=== PATIENT | female | born 1930 | race Caucasian/White ===

== ENCOUNTER 2020-11-16 12:30 | Observation (INO) | payer MEDICARE ==
[2020-11-15 12:46] LABS: BASOPHILS % (AUTO) 0.3 % (0-1); EOSINOPHILS # (AUTO) 0.3 X10'3 (0-0.9); EOSINOPHILS % (AUTO) 3.9 % (0-6); HEMATOCRIT 39.6 % (35.0-45.0); HEMOGLOBIN 13.1 g/dl (12.0-16.0); LYMPHOCYTES # (AUTO) 1.7 X10'3 (1.1-4.8); LYMPHOCYTES % (AUTO) 24.5 % (21-51); MEAN CORPUSCULAR HEMOGLOBIN 30.9 PG (27.0-31.0); MEAN CORPUSCULAR HGB CONC 33.1 g/dL (33.0-36.5); MEAN CORPUSCULAR VOLUME 93.4 FL (78-98); MEAN PLATELET VOLUME 8.2 FL (7.4-10.4); MONOCYTES # (AUTO) 0.5 X10'3 (0-0.9); MONOCYTES % (AUTO) 7.5 % (2-12); NEUTROPHILS # (AUTO) 4.5 X10'3 (1.8-7.7); NEUTROPHILS % (AUTO) 63.8 % (42-75); PLATELET COUNT 171 X10'3 (140-440); RED BLOOD COUNT 4.24 X10'6 (4.20-5.60); RED CELL DISTRIBUTION WIDTH 14.1 % (11.5-14.5); WHITE BLOOD COUNT 7.1 X10'3 (4.5-11.0)
[2020-11-15 12:51] LABS: ALBUMIN 4.1 G/DL (3.4-5.0); ANION GAP 11 (8-16); BLOOD UREA NITROGEN 39 MG/DL (7-18); BUN/CREATININE RATIO 42.4 (6.6-38.0); CHLORIDE 106 MMOL/L (99-107); CREATININE 0.92 MG/DL (0.40-0.90); GLUCOSE 107 MG/DL (70-104); POTASSIUM 4.9 MMOL/L (3.5-5.1); SODIUM 144 MMOL/L (135-145); eGFR 57 ML/MIN
[2020-11-15 12:54] LABS: PARTIAL THROMBOPLASTIN TIME 25 SECONDS (22-32)
[~2020-11-16] VITALS: Ht 157.5 cm; Wt 91.3 kg
[2020-11-16] MEDS ORDERED: LORazepam 0.5 MG tablet PO PRN (12:55)
[2020-11-16] MEDS ORDERED: LIDOcaine/PRILOcaine 5gm cream TP ONE (12:55)
[2020-11-16] MEDS ORDERED: diphenhydrAMINE 25mg capsule PO PRN (12:55)
[2020-11-16] MEDS ORDERED: FENO160T PO (13:08)
[2020-11-16] MEDS ORDERED: ISOS30TA84 PO (13:08)
[2020-11-16] MEDS ORDERED: FLUT16SP26 (13:08)
[2020-11-16] MEDS ORDERED: LOSA100T57 PO (13:08)
[2020-11-16] MEDS ORDERED: OMEP-50 PO (13:08)
[2020-11-16] MEDS ORDERED: SERT-434 PO (13:08)
[2020-11-16] MEDS ORDERED: LEVO175T7 PO (13:08)
[2020-11-16] MEDS ORDERED: QUET25TA34 PO (13:08)
[2020-11-16] MEDS ORDERED: METO-395 PO (13:08)
[2020-11-16] MEDS ORDERED: CELE-85 PO (13:08)
[2020-11-16] MEDS ORDERED: SIMV80TA89 PO (13:08)
[2020-11-16] MEDS ORDERED: ASPI-611 PO (13:11)
[2020-11-16] MEDS ORDERED: ACET-890 PO (13:11)
[2020-11-16] MEDS: normal saline 1,000 ML IV SCH ×2 (13:45→22:26)
[2020-11-16 15:08] VITALS: BP 137/67
--- NOTE | 2020-11-16 15:17 | NUR ---
1330 vitals Addendum: 11/16/20 at 1519 by Yarelis CARPENTER Amended: Links added.
[2020-11-16] MEDS ORDERED: verapamil 2.5 mg/ml inj IV ONE (16:49)
[2020-11-16] MEDS ORDERED: fentaNYL/PF 50MCG/1 ML 2ML syringe ONE (16:49)
[2020-11-16] MEDS ORDERED: midazolam 1 mg/ML 2ml injection ONE (16:49)
[2020-11-16] MEDS ORDERED: nitroGLYCERIN-Tridil 50MG/D5W 250 ML IV ONE (16:49)
[2020-11-16] MEDS ORDERED: LIDOcaine 1% (10mg/ml)w/preservative injection 20ml MDV ONE (16:50)
[2020-11-16] MEDS ORDERED: heparin 1,000unit/ml 10ml vial 10 ML ONE (16:50)
[2020-11-16] MEDS ORDERED: iohexol 350 MG/ML 50ML vial IV ONE (16:50)
[2020-11-16] MEDS ORDERED: iohexol 350MG/ML 100ml bottle IV ONE ×2 (16:50→18:02)
[2020-11-16] MEDS ORDERED: heparin 25,000 UNIT/250ml bag 250 ML IV ONE (18:00)
[2020-11-16] MEDS ORDERED: clopidogrel 300mg tablet ONE (18:34)
[2020-11-16 19:02] VITALS: BP 170/71
[2020-11-16] MEDS ORDERED: proCHLORperazine 10 MG/2 ml inj IV PRN (19:30)
[2020-11-16] MEDS ORDERED: acetaminophen 325mg tablet PO PRN ×2 (19:30)
[2020-11-16] MEDS ORDERED: cyclobenzaprine 10mg tablet PO PRN (19:30)
[2020-11-16] MEDS ORDERED: magnesium hydroxide 30ml (MOM) UD suspension PO PRN (19:30)
[2020-11-16] MEDS ORDERED: OXAZEpam 15mg capsule PO PRN (19:30)
[2020-11-16] MEDS ORDERED: HYDROcodone/acetaminophen 10/325mg tab PO PRN ×2 (19:30)
[2020-11-16] MEDS: docusate sod 100mg capsule PO SCH (20:07)
[2020-11-16] MEDS ORDERED: heparin 25,000 UNIT/250ml bag 250 ML IV SCH (20:30)
[2020-11-16] MEDS ORDERED: ACETAMINOPHEN 650 MG PO PRN (20:45)
[2020-11-16] MEDS ORDERED: isosorbide mononitrate 30mg tab.SR.24H PO SCH (21:00)
[2020-11-16] MEDS ORDERED: sertraline 50mg tablet PO SCH (21:00)
[2020-11-16] MEDS ORDERED: atorvastatin 20mg tablet PO SCH (21:00)
[2020-11-16] MEDS ORDERED: QUEtiapine 25mg tablet PO SCH (21:00)
[2020-11-16] MEDS ORDERED: losartan 50mg tablet PO SCH (21:00)
--- NOTE | 2020-11-16 21:30 | NUR ---
ACT 152. Orders to pull arterial sheath when ACT<180. Sheath pulled, manual pressure held for 30 minutes. Site soft with no visible signs of bleeding. Pt tolerated well.
--- NOTE | 2020-11-16 22:00 | NUR ---
Bloodpressure and heart rate low, antihypertensives held.
[2020-11-16 22:16] LABS: PARTIAL THROMBOPLASTIN TIME 72 SECONDS (22-32)
[2020-11-16 23:00] VITALS: BP 121/53
[2020-11-17 03:57] VITALS: BP 156/60
[2020-11-17] MEDS ORDERED: fenofibrate 145mg tablet PO SCH (08:00)
[2020-11-17] MEDS ORDERED: metoprolol succinate 25mg (24-HOUR) SR. Tablet PO SCH (08:00)
[2020-11-17] MEDS ORDERED: aspirin 81mg tab.chew PO SCH ×2 (08:00)
[2020-11-17] MEDS ORDERED: pantoprazole 40mg Tablet.DR PO SCH (08:00)
[2020-11-17] MEDS ORDERED: levoTHYROXINE 175mcg tablet PO SCH (08:00)
[2020-11-17] MEDS ORDERED: clopidogrel 75mg tablet PO SCH (08:00)
[2020-11-17] MEDS ORDERED: non-formulary drug (Aspirin (Aspir 81) 1 TAB) PO SCH (08:00)
[2020-11-17] MEDS ORDERED: celeCOXIB 100mg capsule PO SCH (08:00)
[2020-11-17] MEDS: docusate sod 100mg capsule PO SCH (08:47)
[2020-11-17] MEDS ORDERED: CLOP75TA15 PO (10:19)
[2020-11-17] MEDS ORDERED: ASPI81TA52 PO (10:19)
== END 2020-11-17 11:20 | disposition home or self-care (01) ==
LOC: SSTAY O 12:30 → MED 3N 19:55
PROVIDERS: ADMIT Internal Medicine Cardiovascular Disease; ATTEND Internal Medicine Cardiovascular Disease
DX: I25.10 Atherosclerotic heart disease of native coronary artery without angina pectoris (principal); I10 Essential (primary) hypertension; E78.49 Other hyperlipidemia; E11.9 Type 2 diabetes mellitus without complications; I83.93 Asymptomatic varicose veins of bilateral lower extremities; K21.9 Gastro-esophageal reflux disease without esophagitis; E03.9 Hypothyroidism, unspecified; M19.90 Unspecified osteoarthritis, unspecified site; G56.03 Carpal tunnel syndrome, bilateral upper limbs; M65.30 Trigger finger, unspecified finger; E66.9 Obesity, unspecified; Z79.899 Other long term (current) drug therapy; Z88.5 Allergy status to narcotic agent; Z88.8 Allergy status to other drugs, medicaments and biological substances; Z68.36 Body mass index [BMI] 36.0-36.9, adult
CPT/HCPCS: 36415; 76937; 80048; 85025; 85347; 85610; 85730; 93005; 93458; 96360; 96361; C1725; C1751; C1769; C1874; C1894; C9600; G0378; J1644; J2001; J2250; J3010; J7030; Q0163; Q9967; 99152; 99153; A4620; A5120; A6258; J3490